=== PATIENT | male | born 1950 | race Caucasian/White ===

== ENCOUNTER 2016-12-15 21:28 | Emergency (ER) | payer OTHER ==
[~2016-12-15] VITALS: Ht 175.3 cm; Wt 72.0 kg
[2016-12-15 21:29] VITALS: BP 149/79; PULSE 87; RESP 16; TEMP 98.6; O2SAT 96
[2016-12-16] MEDS ORDERED: SODIUM CHLORIDE 0.9% FLUSH 10 ML FLUSH IV FLUSH PRN (01:15)
--- NOTE | 2016-12-16 01:38 | PD ---
HPI Chief Complaint: Complaint Time Seen by Provider: 00:52 Travel History International Travel<30 days: No Contact w/Intl Traveler<30days: No Traveled to known affect area: No History of Present Illness HPI 66-year-old male from [place], here on vacation with history of bladder cancer status post cystectomy in May 2014 with orthotopic neobladder mid ileum constructed at that time by urologist Dr. Dobbins at [facility], here for evaluation of possible urinary retention. The patient has noticed decreased urinary output/stream since yesterday afternoon. He is also been experiencing intermittent suprapubic abdominal discomfort. No history of any other abdominal surgeries other than the cystectomy with neobladder construction. No fevers or chills. PFSH Social History Tobacco Use: No Allergies-Medications (Allergen,Severity, Reaction): Coded Allergies: No Known Allergies (Unverified , 12/15/16) Reported Meds & Prescriptions Reported Meds & Active Scripts Active Pyridium (Phenazopyridine HCl) 100 Mg Tab 100 Mg PO Q8H PRN Percocet (Oxycodone-Acetaminophen) 5-325 mg Tab 1 Tab PO Q6H PRN Cefuroxime (Cefuroxime Axetil) 500 Mg Tab 500 Mg PO BID 7 Days Reported Lisinopril 20 Mg Tab 20 Mg PO DAILY Fluticasone Nasal [place] 50 Mcg/Act Naspr 50 Mcg EACH NARE BID 50 mcg/spray Azelastine Nasal [place] (Azelastine HCl) 0.1% [place] 2 [place] EACH NARE BID Doxycycline Hyclate 50 Mg Cap 50 Mg PO DAILY Review of Systems Except as stated in HPI: all other systems reviewed are Neg Physical Exam Narrative GENERAL: Well-developed, well-nourished, comfortable, no apparent distress. SKIN: Focused skin assessment warm/dry. HEAD: Atraumatic. Normocephalic. EYES: Pupils equal and round. No scleral icterus. No injection or drainage. ENT: Mucous membranes pink and moist. CARDIOVASCULAR: Regular rate and rhythm. No murmur appreciated. RESPIRATORY: No accessory muscle use. Clear to auscultation. Breath sounds equal bilaterally. GASTROINTESTINAL: Abdomen soft, nondistended. Mild suprapubic tenderness without peritoneal signs. No obvious distention. MUSCULOSKELETAL: No obvious deformities. No clubbing. No cyanosis. No edema. NEUROLOGICAL: Awake and alert. No obvious cranial nerve deficits. Motor grossly within normal limits. Normal speech. PSYCHIATRIC: Appropriate mood and affect; insight and judgment normal. Data Data Last Documented VS Vital Signs Date Time Temp Pulse Resp B/P (MAP) Pulse Ox O2 Delivery O2 Flow Rate FiO2 12/16/16 05:43 70 18 106/63 (77) 97 12/16/16 05:15 Room Air 12/15/16 21:29 98.6 Orders Orders Complete Blood Count With Diff (12/16/16 01:05) Comprehensive Metabolic Panel (12/16/16 01:05) Lipase (12/16/16 01:05) Prothrombin Time / Inr (Pt) (12/16/16 01:05) Act Partial Throm Time (Ptt) (12/16/16 01:05) Urinalysis - C+S If Indicated (12/16/16 01:05) Iv Access Insert/Monitor (12/16/16 01:05) Ecg Monitoring (12/16/16 01:05) Oximetry (12/16/16 01:05) Sodium Chloride 0.9% Flush (Ns Flush) (12/16/16 01:15) Lidocaine 2% Jelly (Xylocaine 2% Jelly) (12/16/16 01:45) Urinary Catheter Insert/Apply (12/16/16 01:33) Urine Culture (12/16/16 01:55) Morphine Inj (Morphine Inj) (12/16/16 04:00) Ct Abd/Pel W/O Iv Contrast (12/16/16 ) Ondansetron Inj (Zofran Inj) (12/16/16 04:30) Ceftriaxone Inj (Rocephin Inj) (12/16/16 04:45) Phenazopyridine (Pyridium) (12/16/16 05:00) Ketorolac Inj (Toradol Inj) (12/16/16 05:30) Radiology Film Requests (12/16/16 ) Ondansetron Inj (Zofran Inj) (12/16/16 05:45) Labs Laboratory Tests Test 12/16/16 01:50 12/16/16 01:55 12/16/16 04:34 White Blood Count 5.8 TH/MM3 Red Blood Count 3.91 MIL/MM3 Hemoglobin 13.0 GM/DL Hematocrit 38.1 % Mean Corpuscular Volume 97.3 FL Mean Corpuscular Hemoglobin 33.1 PG Mean Corpuscular Hemoglobin Concent 34.1 % Red Cell Distribution Width 13.6 % Platelet Count 182 TH/MM3 Mean Platelet Volume 8.4 FL Neutrophils (%) (Auto) 55.3 % Lymphocytes (%) (Auto) 31.4 % Monocytes (%) (Auto) 7.4 % Eosinophils (%) (Auto) 5.1 % Basophils (%) (Auto) 0.8 % Neutrophils # (Auto) 3.2 TH/MM3 Lymphocytes # (Auto) 1.8 TH/MM3 Monocytes # (Auto) 0.4 TH/MM3 Eosinophils # (Auto) 0.3 TH/MM3 Basophils # (Auto) 0.0 TH/MM3 CBC Comment DIFF FINAL Differential Comment Prothrombin Time 11.4 SEC Prothromb Time International Ratio 1.0 RATIO Activated Partial Thromboplast Time 27.2 SEC Urine Color LIGHT-YELLOW Urine Turbidity HAZY Urine pH 6.0 Urine Specific [place] 1.012 Urine Protein TRACE mg/dL Urine Glucose (UA) NEG mg/dL Urine Ketones NEG mg/dL Urine Occult Blood TRACE Urine Nitrite NEG Urine Bilirubin NEG Urine Urobilinogen LESS THAN 2.0 MG/DL Urine Leukocyte Esterase SMALL Urine RBC 6 /hpf Urine WBC 111 /hpf Urine Bacteria RARE /hpf Urine Mucus FEW /lpf Microscopic Urinalysis Comment CULTURE INDICATED Blood Urea Nitrogen 27 MG/DL Creatinine 1.16 MG/DL Random Glucose 93 MG/DL Total Protein 6.6 GM/DL Albumin 3.3 GM/DL Calcium Level 8.2 MG/DL Alkaline Phosphatase 46 U/L Aspartate Amino Transf (AST/SGOT) 14 U/L Alanine Aminotransferase (ALT/SGPT) 21 U/L Total Bilirubin 0.6 MG/DL Sodium Level 138 MEQ/L Potassium Level 4.0 MEQ/L Chloride Level 103 MEQ/L Carbon Dioxide Level 26.2 MEQ/L Anion Gap 9 MEQ/L Estimat Glomerular Filtration Rate 63 ML/MIN Lipase 217 U/L [facility] Medical Decision Making Medical Screen Exam Complete: Yes Emergency Medical Condition: Yes Differential Diagnosis Urinary retention, UTI, cystitis, intra-abdominal infection. Narrative Course Bedside ultrasound was performed by me about 20 minutes post void in shows that there is a moderate amount of urine in the patient's neobladder. Case discussed with on-call urologist Dr. Tobias at [facility] covering for the patient's urologist Dr. Dobbins. He recommends Macias placement. The patient's chemistry was hemolyzed 3 times, and senior technical writer refuses to do CT abdomen pelvis with contrast without creatinine. It has been over 3 hours since the patient was first evaluated by me. Because of this, CT abdomen pelvis with contrast was canceled, and will be done without contrast. Vital signs show heart rate 87, blood pressure 149/79, pulse ox 96% on room air , oral temp of 98.6 reason Fahrenheit. CBC is unremarkable. CMP UA shows hazy urine, trace occult blood, small leukocyte esterase, 6 WBCs, 111 wbc's, rare bacteria, few mucus. CT abdomen pelvis: CONCLUSION: 1. Macias catheter is present with an orthotopic neobladder. There is mild asymmetric distention of the right collecting system and ureter, possibly related to reflux. No acute finding is identified. 2. Small volume of free fluid in the abdomen and pelvis. Patient and the patient's were made aware of all findings. He was given a dose of morphine here for his abdominal pain. He is still having some intermittent lower abdominal/suprapubic discomfort. He will be given a dose of Toradol. Maicas catheter was placed here with 125 cc of urine output. The patient was able to urinate more than this prior to Macias placement. He does not believe she is retaining urine and would prefer to not have the Macias remain in place upon discharge. I agree with this, and will remove the Macias was strict return instructions should the patient experienced urinary retention in the next 12 hours. The patient also has signs of a UTI. He will be started on Ceftin and was given a dose of IV Rocephin here in the emergency department. He is stable for discharge home and will follow up with his urologist when he returns to [place] on Monday. He was informed on when to return to the emergency department. He verbalizes understanding and agreement with plan. Diagnosis Primary Impression: UTI (urinary tract infection) Qualified Codes: N30.01 - Acute cystitis with hematuria Additional Impression: Lower abdominal pain Referrals: Urologist 1 week Additional Instructions: Follow-up with your urologist when he returns to [place] next week. Return to the emergency department for worsening symptoms or any other concerns. Scripts Phenazopyridine (Pyridium) 100 Mg Tab 100 MG PO Q8H Y for DYSURIA, #6 TAB 0 Refills Prov: Lan Cardenas MD 12/16/16 Oxycodone-Acetaminophen (Percocet) 5-325 mg Tab 1 TAB PO Q6H Y for PAIN, #10 TAB 0 Refills Prov: Lan Cardenas MD 12/16/16 Cefuroxime (Cefuroxime) 500 Mg Tab 500 MG PO BID for Infection for 7 Days, TAB 0 Refills Prov: Lan Cardenas MD 12/16/16 Disposition: 01 DISCHARGE HOME Condition: Stable Lan Cardenas MD Dec 16, 2016 01:38
[2016-12-16] MEDS ORDERED: LIDOCAINE 2% JELLY 30 ML TUBE TOPICAL ONE (01:45)
[2016-12-16] MEDS ORDERED: LISI-515 PO (01:56)
[2016-12-16] MEDS ORDERED: FLUT50SP EACH NARE (01:56)
[2016-12-16] MEDS ORDERED: AZEL1SPR2 EACH NARE (01:56)
[2016-12-16] MEDS ORDERED: DOXY50 PO (01:56)
[2016-12-16 02:00] VITALS: BP 122/67; PULSE 60; RESP 18; O2SAT 98
[2016-12-16 02:08] LABS: AUTOMATED NEUTROPHIL # 3.2 TH/MM3 (1.8-7.7); BASOPHIL % 0.8 % (0.0-2.0); EOSINOPHIL # 0.3 TH/MM3 (0-0.4); EOSINOPHIL % 5.1 % (0.0-4.0); HEMATOCRIT 38.1 % (39.0-51.0); HEMO FLAGS DIFF FINAL; LYMPH % 31.4 % (9.0-44.0); LYMPHOCYTE # 1.8 TH/MM3 (1.0-4.8); MEAN CELL VOLUME 97.3 FL (80.0-100.0); MEAN CORPUSCULAR HEMOGLOBIN 33.1 PG (27.0-34.0); MEAN CORPUSCULAR HGB CONC 34.1 % (32.0-36.0); MONO % 7.4 % (0.0-8.0); NEUT % 55.3 % (16.0-70.0); PLATELET COUNT 182 TH/MM3 (150-450); RED BLOOD COUNT 3.91 MIL/MM3 (4.50-5.90); RED CELL DISTRIBUTION WIDTH 13.6 % (11.6-17.2); WHITE BLOOD COUNT 5.8 TH/MM3 (4.0-11.0)
[2016-12-16 02:13] LABS: BACTERIA, URINE RARE /hpf; BLOOD, URINE TRACE (NEG); COMMENT (UR) CULTURE INDICATED; CULTURE IF INDICATED CULTURE INDICATED; GLUCOSE,URINE NEG (NEG); KETONE, URINE NEG (NEG); MUCUS URINE FEW /lpf (OCC); NITRITE,URINE NEG (NEG); URINE COLOR LIGHT-YELLOW (YELLW/STRAW)
[2016-12-16 02:19] LABS: APTT (PATIENT) 27.2 SEC (24.3-30.1); PROTHROMBIN TIME - PATIENT 11.4 SEC (9.8-11.6)
[2016-12-16 02:55] VITALS: BP 129/66; PULSE 62; RESP 18; O2SAT 98
[2016-12-16 03:30] VITALS: BP 123/67; PULSE 62; RESP 18; O2SAT 99
[2016-12-16] MEDS ORDERED: MORPHINE SULFATE 4 MG/ML INJ IV PUSH ONE (04:00)
[2016-12-16 04:25] VITALS: BP 145/81; PULSE 62; RESP 18; O2SAT 98
[2016-12-16] MEDS ORDERED: ONDANSETRON HCL 4 MG/2 ML VIAL ONE (04:30)
[2016-12-16] MEDS ORDERED: cefTRIAXone INJ 1,000 MG in SODIUM CHLORIDE 0.9% INJ 100 ML IV ONE (04:45)
--- NOTE | 2016-12-16 04:57 | RADRPT ---
EXAM DATE/TIME: 12/16/2016 04:40 [facility] COMPARISON: No previous studies available for comparison. INDICATIONS : Difficulty urinating. Patient has neobladder. ORAL CONTRAST: No oral contrast ingested. RADIATION DOSE: 9.59 CTDIvol (mGy) MEDICAL HISTORY : Neobladder SURGICAL HISTORY : None. ENCOUNTER: Initial ACUITY: 1 day PAIN SCALE: 0/10 LOCATION: abdomen TECHNIQUE: Volumetric scanning of the abdomen and pelvis was performed. Using automated exposure control and ad justment of the mA and/or kV according to patient size, radiation dose was kept as low as reasonably achievable to obtain optimal diagnostic quality images. DICOM format image data is available electro nically for review and comparison. FINDINGS: LOWER LUNGS: There are calcified granulomas at the lung bases along with bilateral calcified hilar lymph nodes. LIVER: Homogeneous density without lesion. A few punctate calcifications are present. There is no dilation o f the biliary tree. No calcified gallstones. SPLEEN: Normal size without lesion. There are punctate calcifications/granulomas. PANCREAS: Within normal limits. KIDNEYS: Normal in size and shape. There is no mass, stone, or significant hydronephrosis. There is mild asym metric distention of the right collecting system and ureter. ADRENAL GLANDS: Within normal limits. VASCULAR: There is no aortic aneurysm. BOWEL/MESENTERY: The stomach, small bowel, and colon demonstrate no acute abnormality. There is no free intraperitone al air. There is free fluid in the abdomen and pelvis. A small hiatal hernia is present. ABDOMINAL WALL: Within normal limits. RETROPERITONEUM: There is no lymphadenopathy. BLADDER: Macias catheter is present within an orthotopic neobladder. The neobladder is partially distended with fluid. REPRODUCTIVE: Prostate gland is not visualized. INGUINAL: There is no lymphadenopathy or hernia. MUSCULOSKELETAL: There are degenerative changes of the lumbar spine with levoscoliosis. CONCLUSION: 1. Macias catheter is present with an orthotopic neobladder. There is mild asymmetric distention of th e right collecting system and ureter, possibly related to reflux. No acute finding is identified. 2. Small volume of free fluid in the abdomen and pelvis. Rico Hoffman MD on December 16, 2016 at 4:51 Board Certified Radiologist. This report was verified electronically.
[2016-12-16] MEDS ORDERED: PHENAZOPYRIDINE HCL 200 MG TAB PO ONE (05:00)
[2016-12-16 05:04] LABS: ALT (GPT) 21 U/L (12-78); ANION GAP 9 MEQ/L (5-15); AST (GOT) 14 U/L (15-37); BICARBONATE 26.2 MEQ/L (21.0-32.0); BLOOD UREA NITROGEN 27 MG/DL (7-18); CHLORIDE 103 MEQ/L (98-107); GLOMERULAR FILTRATION RATE 63 ML/MIN (>89); SODIUM (NA) 138 MEQ/L (136-145)
[2016-12-16 05:06] LABS: TOTAL BILIRUBIN ADULT 0.6 MG/DL (0.2-1.0)
[2016-12-16 05:09] LABS: ALKALINE PHOSPHATASE 46 U/L (45-117)
[2016-12-16 05:15] VITALS: BP 109/67; PULSE 66; RESP 18; O2SAT 97
[2016-12-16] MEDS ORDERED: KETOROLAC TROMETHAMINE 30 MG/ML (IVP) VIAL IV PUSH ONE (05:30)
[2016-12-16] MEDS ORDERED: CEFU1TAB20 PO (05:34)
[2016-12-16] MEDS ORDERED: PHEN0.4T PO (05:34)
[2016-12-16] MEDS ORDERED: PERC5TAB12 PO (05:34)
[2016-12-16 05:43] VITALS: BP 106/63
[2016-12-16] MEDS ORDERED: ONDANSETRON HCL 4 MG/2 ML VIAL IV PUSH ONE (05:45)
== END 2016-12-16 06:35 | disposition home or self-care (01) ==
LOC: NEPE 21:28
DX: N39.0 Urinary tract infection, site not specified (principal); Z85.51 Personal history of malignant neoplasm of bladder
CPT/HCPCS: 51702; 74176; 80053; 81001; 83690; 85025; 85610; 85730; 87086; 96365; 96375; 99285; J0696; J1885; J2270; J2405